=== PATIENT | female | born 1945 | race Caucasian/White ===

== ENCOUNTER 2025-09-28 15:12 | Outpatient (CLI) | payer MEDICARE, OTHER | END 2025-09-28 23:59 | disposition home or self-care (01) | LOC: RAD 15:12 | PROVIDERS: ATTEND Internal Medicine Interventional Cardiology | DX: R06.02 Shortness of breath (principal) | CPT/HCPCS: 71046 ==

== ENCOUNTER 2025-10-08 06:37 | Inpatient (IN) | payer MEDICARE, OTHER ==
[~2025-10-08] VITALS: Ht 152.4 cm; Wt 65.8 kg
[2025-10-08] MEDS ORDERED: LIDOCAINE 2%-EPI 1:100,000 30 ML VIAL ONE (07:57)
[2025-10-08] MEDS ORDERED: dexaMETHasone SOD PHOSPHATE 2 ML ONE (07:57)
[2025-10-08] MEDS ORDERED: LABETALOL 20 MG/4 ML VIAL ONE (07:57)
[2025-10-08] MEDS ORDERED: VANCOMYCIN 1 GM VIAL ONE (07:57)
[2025-10-08] MEDS ORDERED: ONDANSETRON HCL/PF 4 MG/2 ML VIAL IVP PRN (10:30)
[2025-10-08 10:45] VITALS: BP 136/54; TEMP 98.2; O2SAT 95
[2025-10-08] MEDS ORDERED: HYDROMORPHONE 1 MG/1 ML DISP.SYRIN IV PRN (11:00)
[2025-10-08] MEDS: IV NS 0.9% 1,000 ML IV PRN (11:41)
[2025-10-08 16:00] VITALS: BP 138/53; TEMP 98.2; O2SAT 96
[2025-10-08] MEDS ORDERED: TIMO5DRO18 EACHEYE (16:06)
[2025-10-08] MEDS ORDERED: ROSU10TA29 PO (16:06)
[2025-10-08] MEDS ORDERED: ICOS1CAP PO (16:06)
[2025-10-08] MEDS ORDERED: RAMI5CAP66 PO (16:06)
[2025-10-08] MEDS ORDERED: MINO2.5T PO (16:06)
[2025-10-08] MEDS ORDERED: DICY10CA13 PO (16:06)
[2025-10-08] MEDS ORDERED: CYCL5.5D EACHEYE (16:06)
[2025-10-08] MEDS ORDERED: ATEN25TA PO (16:06)
[2025-10-08] MEDS ORDERED: DONE10TA44 PO (16:06)
[2025-10-08] MEDS ORDERED: PANT20TA17 PO (16:06)
[2025-10-08] MEDS: VANCOMYCIN 1 GM in IV D5W 250ml IV SCH (18:05)
[2025-10-08 20:00] VITALS: BP 125/60; TEMP 97.5; O2SAT 95
[2025-10-08] MEDS: TIMOLOL 0.5% SOLN OPHTH 5 ML BOTTLE EACHEYE SCH (21:26)
[2025-10-08] MEDS: ATORVASTATIN 40 MG TABLET PO SCH (21:26)
[2025-10-08 22:00] VITALS: BP 129/72; TEMP 98; O2SAT 97
[2025-10-09] MEDS: ACETAMINOPHEN 325 MG TABLET PO PRN (01:33)
[2025-10-09 08:06] LABS: PLATELET COUNT (AUTO) 97 K/uL (150-450); RED BLOOD CELL COUNT(AUTO) 3.45 MIL/uL (4.0-5.2); RED CELL DISTRIBUTION WIDTH 13.4 % (11.5-15.0); WHITE BLOOD COUNT (AUTO) 10.7 K/uL (4.3-11.0)
[2025-10-09 08:37] LABS: ASPARTATE AMINOTRANSFERASE 32.0 U/L (15-37); CALCIUM, SERUM 8.8 mg/dL (8.5-10.1); CREATININE 1.3 mg/dL (0.6-1.3); PHOSPHORUS 3.2 mg/dL (2.5-4.9); SODIUM SERUM 136.0 mmol/L (136-145); TOTAL PROTEIN, SERUM 7.0 g/dL (6.4-8.2); UREA NITROGEN, BLOOD 23.0 mg/dL (7-18)
[2025-10-09] MEDS ORDERED: Medication Not On Formulary EA (Icosapent Ethyl (Vascepa) 1 GM) PO SCH (09:00)
[2025-10-09] MEDS ORDERED: Medication Not On Formulary EA (Cyclosporine (Restasis Multidose) 1 DROP) EACHEYE SCH (09:00)
[2025-10-09] MEDS: DICYCLOMINE HCL 10 MG CAPSULE PO SCH (09:08)
[2025-10-09] MEDS: MINOXIDIL (2.5MG) 2.5 MG TABLET PO SCH (09:09)
[2025-10-09] MEDS: DONEPEZIL 5 MG TABLET PO SCH (09:09)
[2025-10-09] MEDS: PANTOPRAZOLE 40 MG TABLET.DR PO SCH (09:09)
[2025-10-09] MEDS: LISINOPRIL (10MG) 10 MG TABLET PO SCH (09:09)
[2025-10-09 09:10] VITALS: BP 126/59
[2025-10-09] MEDS: ATENOLOL 25 MG TABLET PO SCH (09:10)
[2025-10-09 13:12] LABS: BASOPHILS % (MANUAL) 0 % (0.0-2.0); EOSINOPHILS % (MANUAL) 0 % (0-4); LYMPHOCYTES % (MANUAL) 12 % (16-48); MONOCYTES % (MANUAL) 5 % (0-11.0); NEUTROPHILS % (MANUAL) 83 (42-76)
[2025-10-09 13:13] LABS: PLATELET ESTIMATE DECREASED
== END 2025-10-09 11:00 | disposition home or self-care (01) | DRG 142 ==
LOC: DS 06:37 → MED 10:09
PROVIDERS: ADMIT Internal Medicine; ATTEND Internal Medicine
PROC: 0NSV04Z Reposition Left Mandible with Internal Fixation Device, Open Approach (ICD-10-PCS; principal; 2025-10-08 07:30)
PROC: 0NUT07Z Supplement Right Mandible with Autologous Tissue Substitute, Open Approach (ICD-10-PCS; principal; 2025-10-08 07:30)
PROC: 0N5T0ZZ Destruction of Right Mandible, Open Approach (ICD-10-PCS; principal; 2025-10-08 07:30)
PROC: 0NST04Z Reposition Right Mandible with Internal Fixation Device, Open Approach (ICD-10-PCS; principal; 2025-10-08 07:30)
PROC: 0NUV07Z Supplement Left Mandible with Autologous Tissue Substitute, Open Approach (ICD-10-PCS; principal; 2025-10-08 07:30)
PROC: 0N5V0ZZ Destruction of Left Mandible, Open Approach (ICD-10-PCS; principal; 2025-10-08 07:30)
DX: S02.609A Fracture of mandible, unspecified, initial encounter for closed fracture (principal); E78.5 Hyperlipidemia, unspecified; I10 Essential (primary) hypertension; I34.0 Nonrheumatic mitral (valve) insufficiency; M27.2 Inflammatory conditions of jaws; M27.40 Unspecified cyst of jaw; Z79.899 Other long term (current) drug therapy; X58.XXXA Exposure to other specified factors, initial encounter; Y92.9 Unspecified place or not applicable
CPT/HCPCS: 36415; 80053-TC; 83735-TC; 84100-TC; 85027-TC; 88305-TC; 88311-TC; A4217; A4223; A4338; C1713; G0378; J0461; J0690; J1100; J2704; J3373; J3490; J7030; J7060